=== PATIENT | male | born 1955 | race Caucasian/White ===

== ENCOUNTER 2024-04-13 08:05 | Day surgery (SDC) | payer OTHER ==
[2024-04-05 10:52] VITALS: BP 130/81
[~2024-04-13] VITALS: Ht 177.8 cm; Wt 120.5 kg
[~2024-04-13 08:05] MED LIST: ADVIL200 MG; COMBIVENT RESPIM4 GM INH; DULOXETINE HCL30 MG PO; GLUCOTROL XL5 MG PO; IBLOOD GLUCOSE TEST STRIP 1 EA TEST VI PRN; LACTATED RINGER'S 1,000 ML IV SCH; LANTUS SOL100 UNIT/1 SUB-Q; LEVOTHYROXINE175 MC1 PO; LIDOCAINE HCL 1% 5 ML SDV INJ ONE; METFORMIN HCL500 M3; MIDAZOLAM HCL 5 MG/5 ML VIAL IV PRN; OMEPRAZOLE20 MG PO; SPIRIVA RESPIMAT4 G1 INH; VENTOLIN HFA18 GM; ZOCOR20 MG PO; fentaNYL citrate 100 MCG/2 ML VIAL IV PRN
[2024-04-13 08:17] VITALS: BP 139/95
[2024-04-13] MEDS ORDERED: TYLENOL325 M1 PO (08:22)
[2024-04-13] MEDS ORDERED: propofoL 200 MG/20 ML VIAL ONE (08:49)
--- NOTE | 2024-04-13 09:29 | NUR ---
0915 PT IS COLD, PROVIDED WARM BLANKETS AND HOSE WARMER. PT UPDATED ON WAIT TIME. PT SEEMS AGREEABLE AND UNDERSTANDS AT THIS TIME
[2024-04-13] MEDS ORDERED: LACTATED RINGER'S 1,000 ML IV ONE (10:29)
--- NOTE | 2024-04-13 11:29 | NUR ---
04/13/24 Arabella9 Libra Rincon 1122-PATIENT ARRIVED TO PACU ON 6L MASK RR EVEN. PATIENT NONAROUSABLE ORAL AIRWAY IN PLACE. SR. IVF INFUSING. PATIENT LAYING LEFT LATERAL ABDOMEN ROUND AND SOFT. GLUCOSE 236
[2024-04-13 12:28] VITALS: BP 116/83
--- NOTE | 2024-04-14 08:46 | OR ---
[facility] [address] [place], [place] [address] Signed DATE OF OPERATION: 04/13/2024 SURGEON: Aime Lambert MD PREOPERATIVE DIAGNOSES: 1. Positive fecal immunochemical test. 2. Initial colonoscopy. POSTOPERATIVE DIAGNOSES: 1. Long redundant colon. 2. Minimal internal hemorrhoids. 3. 4 mm polyp at 6 cm in the rectum. 4. 5 mm polyp at 80 cm in left colon. 5. An 8 mm polyp at 95 cm in left colon (snare). 6. 4 mm polyp at 110 cm in transverse colon. 7. 8 mm polyps x4 and 4 mm polyp x1 in the proximal right colon (snare polypectomy x4, hot biopsy x1 and application of clip x2). 8. A 15 mm polyp at the end of ileocecal valve (snare). PROCEDURE: Colonoscopy with snare polypectomy, hot biopsy and application of clip x2. ESTIMATED BLOOD LOSS: None. INDICATIONS: Sonny is a 69-year-old obese diabetic gentleman with significant pulmonary dysfunction. He finally gave a FIT test and it came back positive. He said the stool was brown. He has never had a previous colonoscopy. There is no family history of colon cancer or polyps. He said he uses MiraLAX to keep his bowels regular on a daily basis. He told me in the office he can walk about 50-60 feet before he develops dyspnea on exertion and has to stop. Consequently, he clearly needed monitored anesthesia care with propofol infusion today. In the office, I gave him our brochure on colonoscopy. 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 He knows there is risk including, but not limited to gas bloating, crampy abdominal pain, bleeding, perforation requiring surgery, and missed diagnosis. We also reviewed the written instructions for the bowel prep line by line. He said he is very familiar with the MiraLAX of course as well as Dulcolax. We also gone through his medications very carefully. We had him hold the metformin and glipizide in the morning to after the test. He gave himself last night. He understands an adult person has to take him home afterwards. Electronically Signed By: AIME LAMBERT MD 04/14/24 0846 PATIENT NAME: SONNY GUO OPERATIVE REPORT DATE OF : 59 REPORT #: [id number] PHYSICIAN: AIME LAMBERT MD PCP: NO PRIMARY CARE PHYSICIAN REPORT IS CONFIDENTIAL AND NOT TO BE RELEASED WITHOUT AUTHORIZATION [facility] [address] [place] [id number] Signed He said that would most likely be his sister. He had expressed understanding and wished to proceed. PROCEDURE IN DETAIL: Sonny was taken into endoscopy suite and placed in the left lateral decubitus position. He was given monitored anesthesia care, propofol infusion per our nurse stage driver. A digital rectal exam was performed. He had good sphincter tone. Not much in way of external hemorrhoids. No masses. I really could not appreciate his prostate gland. The adult colonoscope was introduced and advanced under direct visualization of camera. It took a while to get around up into the cecum itself. Overall, his prep was not bad. He had some areas of liquid brown stool, I could not quite suction out completely. I think in the future he is going to need a double bowel prep to involve an entire gallon of polyethylene glycol. We took the above polyps out with the help of the snare and/or a hot biopsy forceps. He had a fairly significant polyp there at the one end of the ileocecal valve. He also had a cluster of multiple polyps in the proximal transverse colon. We did put a double clip in that area on one of the polypectomy sites. It was a bit broad. We put a third clip on another one of those biopsy sites as well. We did not specifically see any diverticulosis. Once in the rectum, the scope was retroflexed. He does have minimal to moderate internal hemorrhoid columns as well. After this, the gas was suctioned out, colonoscope removed. Sonny tolerated the procedure quite well. RECOMMENDATIONS: I will see Sonny back in my office in the next 7-14 days to review his results. He is going to need to heal up these polypectomy site and we need to take him back for a colonoscopy here in the months ahead on a double bowel prep. He will always need monitored anesthesia care. Aime Lambert MD ALB/MODL /[id number] cc: [place], [place] Aime Lambert MD Electronically Signed By: AIME LAMBERT MD 04/14/24 0846 PATIENT NAME: SONNY GUO OPERATIVE REPORT DATE OF : 59 REPORT #: [id number] PHYSICIAN: AIME LAMBERT MD PCP: NO PRIMARY CARE PHYSICIAN REPORT IS CONFIDENTIAL AND NOT TO BE RELEASED WITHOUT AUTHORIZATION [facility] [address] [place] [place], [place] [address] Signed Copies: AIME LAMBERT MD ~ Electronically Signed By: AIME LAMBERT MD 04/14/24 0846 PATIENT NAME: SONNY GUO OPERATIVE REPORT DATE OF : 59 REPORT #: [id number] PHYSICIAN: AIME LAMBERT MD PCP: NO PRIMARY CARE PHYSICIAN REPORT IS CONFIDENTIAL AND NOT TO BE RELEASED WITHOUT AUTHORIZATION
--- NOTE | 2024-04-18 17:11 | PATH ---
[facility] [address] [facility] [place], [place] [address] Signed SPECIMEN(S): A RECTAL POLYP, 6 CM SPECIMEN(S): B DESCENDING POLYP, 80 CM SPECIMEN(S): C COLON POLYP, 95 CM SPECIMEN(S): D COLON POLYP, 110 CM SPECIMEN(S): E PROXIMAL TRANSVERSE POLYP, 130 CM SPECIMEN(S): F CECUM, ILEOCECAL VALVE POLYP SPECIMEN SOURCE: A. RECTAL POLYP, 6 CM B. DESCENDING POLYP, 80 CM C. COLON POLYP, 95 CM D. COLON POLYP, 110 CM E. PROXIMAL TRANSVERSE POLYP, 130 CM F. CECUM, ILEOCECAL VALVE POLYP CLINICAL HISTORY: Screening. Internal hemorrhoids, long redundant colon. FINAL PATHOLOGIC DIAGNOSIS: A. Rectum, 6 mm, polypectomy: - Hyperplastic polyp B. Colon, descending, 80 cm, polypectomy: - Tubular adenoma C. Colon, 95 cm, polypectomy: - Tubular adenoma D. Colon, 110 cm, polypectomy: - Tubular adenoma E. Colon, proximal transverse, 130 cm, polypectomy: - Tubular adenoma F. Colon, cecum/ileocecal valve, polypectomy: - Tubular adenoma BRP MICROSCOPIC EXAMINATION: Histologic sections of all submitted blocks are examined by light microscopy. These findings, together with the gross examination, support the pathologic diagnosis. GROSS DESCRIPTION: A. The specimen, labeled and designated "Papo, rectal polyp, 6 cm," is received in formalin and consists of one tran soft tissue fragment, 0.3 cm. PATIENT NAME: NIELS GUO PATHOLOGY DATE OF : 59 REPORT #: [id number] PHYSICIAN: CLAIRE DE PCP: NO PRIMARY CARE PHYSICIAN REPORT IS CONFIDENTIAL AND NOT TO BE RELEASED WITHOUT AUTHORIZATION [facility] [address] [place], [place] [address] Signed Entirely submitted in (A1). B. The specimen, labeled and designated "Greeno, descending polyp, 80 cm," is received in formalin and consists of one tran soft tissue fragment, 0.4 cm. Entirely submitted in (B1). C. The specimen, labeled and designated "Greeno, colon polyp, 95 cm," is received in formalin and consists of four tran soft tissue fragments, ranging from 0.1-1.3 cm. Entirely submitted in (C1). D. The specimen, labeled and designated "Greeno, colon polyp, 110 cm," is received in formalin and consists of one tran soft tissue fragment, 0.3 cm. Entirely submitted in (D1). E. The specimen, labeled and designated "Greeno, proximal transverse polyp, 130 cm," is received in formalin and consists of multiple fragments of tran soft tissue (2.3 x 1.5 x 0.4 cm in aggregate). The specimen is submitted entirely in cassette (E1). F. The specimen, labeled and designated "Greeno, cecum-ileocecal valve polyp," is received in formalin and consists of multiple fragments of green-brown soft tissue (2.7 x 2.0 x 0.4 cm in aggregate). The specimen is submitted entirely in cassette (F1). VB (under the direct supervision of a pathologist) The Gross Description was prepared using a voice recognition system. The report was reviewed for accuracy; however, sound-alike word errors, addition and/or deletions may occur. If there is any question about this report, please contact Client Services. ADDITIONAL NOTES: Immunohistochemical and/or in situ hybridization studies if performed in this case included appropriate positive controls that reacted as expected. This test was developed and its performance characteristics determined by [facility]. It has not been cleared or approved by the U.S. Food and Drug Administration. The FDA has determined that such clearance or approval is not necessary. This test is used for clinical purposes. It should not be regarded as investigational or for research. [facility] is certified under the Clinical Laboratory Improvement Amendments of 1988 (CLIA) as qualified to perform high complexity clinical laboratory testing. PERFORMING LABORATORY: Technical component was performed by [facility], [address] [place] [id number] (CLIA# [id number]). Professional interpretation was performed by [facility] PATIENT NAME: NIELS GUO PATHOLOGY DATE OF : 59 REPORT #: [id number] PHYSICIAN: CLAIRE DE PCP: NO PRIMARY CARE PHYSICIAN REPORT IS CONFIDENTIAL AND NOT TO BE RELEASED WITHOUT AUTHORIZATION [facility] [address] [place], [place] [address] [id number] Diagnostician: Deng Oliver MD Pathologist Electronically Signed 04/18/2024 Copies: ~ PATIENT NAME: NIELS GUO PATHOLOGY DATE OF : 59 REPORT #: [id number] PHYSICIAN: CLAIRE PATHOLOGY PCP: NO PRIMARY CARE PHYSICIAN REPORT IS CONFIDENTIAL AND NOT TO BE RELEASED WITHOUT AUTHORIZATION
== END 2024-04-13 12:10 | disposition home or self-care (01) ==
LOC: DS 08:05
PROVIDERS: ATTEND Colon & Rectal Surgery
PROC: 0DBE8ZX Excision of Large Intestine, Via Natural or Artificial Opening Endoscopic, Diagnostic (ICD-10-PCS; principal; 2024-04-13 09:45)
DX: Z12.11 Encounter for screening for malignant neoplasm of colon (principal); D12.4 Benign neoplasm of descending colon; D12.3 Benign neoplasm of transverse colon; D12.0 Benign neoplasm of cecum; D12.2 Benign neoplasm of ascending colon; K62.1 Rectal polyp; Q43.8 Other specified congenital malformations of intestine; K64.8 Other hemorrhoids; K21.9 Gastro-esophageal reflux disease without esophagitis; J44.89 Other specified chronic obstructive pulmonary disease; E11.9 Type 2 diabetes mellitus without complications; E78.5 Hyperlipidemia, unspecified; E03.9 Hypothyroidism, unspecified; Z79.4 Long term (current) use of insulin; Z79.890 Hormone replacement therapy; Z79.899 Other long term (current) drug therapy
CPT/HCPCS: 00811; 88305; J2704; J7121

== ENCOUNTER 2025-01-04 05:50 | Day surgery (SDC) | payer OTHER ==
[2024-10-31 09:25] VITALS: BP 97/79
[2025-01-02 09:11] VITALS: BP 97/79
[~2025-01-04] VITALS: Ht 177.8 cm; Wt 110.9 kg
[~2025-01-04 05:50] MED LIST changes: +GLIPIZIDE ER5 MG PO; -IBLOOD GLUCOSE TEST STRIP 1 EA TEST VI PRN; -LIDOCAINE HCL 1% 5 ML SDV INJ ONE; -MIDAZOLAM HCL 5 MG/5 ML VIAL IV PRN; +OZEMPIC2 MG/0.75 SQ; +TYLENOL325 M1 PO; -fentaNYL citrate 100 MCG/2 ML VIAL IV PRN
[2025-01-04 06:04] VITALS: BP 147/93
[2025-01-04] MEDS ORDERED: LIDOCAINE HCL 1% 5 ML SDV INJ ONE (07:00)
[2025-01-04] MEDS ORDERED: IBLOOD GLUCOSE TEST STRIP 1 EA TEST VI PRN (07:00)
[2025-01-04] MEDS ORDERED: propofoL 200 MG/20 ML VIAL ONE (07:21)
[2025-01-04] MEDS ORDERED: LIDOCAINE HCL 2% 5 ML SDV ONE (07:21)
--- NOTE | 2025-01-04 07:26 | NUR ---
VISITED DURING SPIRITUAL CARE ROUNDS. PT SUPPORTED BY SISTER IN ROOM. BOTH IN OVERALL GOOD SPIRITS; NO IMMEDIATE NEEDS. DIE MECHANIC PROVIDED SUPPORTIVE PRESENCE, HOSPITALITY, PRAYER. PT AND SISTER EXPRESSED GRATITUDE.
--- NOTE | 2025-01-04 07:29 | NUR ---
GAVE PAGER 11 TO SISTER THALIA.
[2025-01-04] MEDS ORDERED: GLUCAGON,HUMAN RECOMBINANT 1 MG/ML VIAL ONE (07:49)
[2025-01-04] MEDS ORDERED: WATER STERILE 20 ML VIAL ONE (07:51)
[2025-01-04] MEDS ORDERED: fentaNYL citrate 100 MCG/2 ML VIAL ONE (08:07)
--- NOTE | 2025-01-04 08:27 | NUR ---
01/04/25 0827 Libra Rincon 0801-PATIENT ARRIVED TO PACU ON 6L MASK RR EVEN NOANROUSABLE. PATIENT LAYING LEFT LATERAL ABDOMEN SOFT IVF INFUSING. SR HR 80'S.
[2025-01-04 08:59] VITALS: BP 118/96
--- NOTE | 2025-01-04 10:01 | OR ---
[facility] [address] [place], [place] [address] Signed DATE OF OPERATION: 01/04/2025 SURGEON: Aime Lambert MD PREOPERATIVE DIAGNOSES: 1. Personal history of colonic polyps in March 2024. 2. Long redundant colon. 3. Internal hemorrhoids. POSTOPERATIVE DIAGNOSES: 1. Long redundant colon. 2. Minimal sigmoid diverticulosis. 3. Moderate internal and external hemorrhoids. 4. An 8 mm polyp at 85 cm in left colon (snare). 5. A 10 to 12 mm polyp at 65 cm in left colon remaining in situ. 6. Very poor bowel prep. PROCEDURE: Colonoscopy with hot biopsy. ESTIMATED BLOOD LOSS: None. INDICATIONS: Sravan is a 69-year-old obese diabetic gentleman, who had saw me for his initial colonoscopy last year. He had a positive FIT test. He also uses a wheeled walker. We helped him in March of last year and we found that he has a long redundant colon along with internal hemorrhoids. He had 10 polyps removed, 9 of which were adenomatous. The other was hyperplastic. His prep was not the best. We asked him to come back on a short interval with a double bowel prep, which would include eight Dulcolax tablets and an entire gallon of polyethylene glycol throughout the day. He understands there is risk including, but not limited to gas bloating, crampy abdominal pain, bleeding, perforation requiring surgery, and missed diagnosis. We had went through the bowel prep instructions once again and I marked that appropriately for double bowel prep. We went through that actually quite a bit of detail. Also because of his size and his COPD, we asked for monitored anesthesia care once again. He understands an adult person has to take him home afterwards. It sounds like his sister is here today. He had expressed understanding and wished to proceed. DESCRIPTION OF PROCEDURE: Electronically Signed By: AIME LAMBERT MD 01/04/25 1001 PATIENT NAME: SONNY GUO OPERATIVE REPORT DATE OF : 59 REPORT #: [id number] PHYSICIAN: IAME LAMBERT MD PCP: NO PRIMARY CARE PHYSICIAN REPORT IS CONFIDENTIAL AND NOT TO BE RELEASED WITHOUT AUTHORIZATION [facility] [address] [place], [place] [address] Signed Sravan was taken into our endoscopy suite and placed in the left lateral decubitus position. He was given monitored anesthesia care propofol infusion per our nurse pile trimmer. A digital rectal exam was performed. On this occasion, he had bilateral moderate-sized external hemorrhoids. He had good sphincter tone. No masses. His prostate was indurated and enlarged. The adult colonoscope was introduced and we immediately started to encounter liquid particulate stool matter. It was far too much to suction through the scope. We worked our way up through the colon and he could not maintain any air. He air and all the liquid particulate stool matter. We added some fentanyl which helped along with some glucagon. We made our way up into the transverse colon and never could get any further. The prep was so poor that we were having trouble seeing. We just simply had the stop. The scope was slowly withdrawn. We did take a polyp about although listed as 85 cm. When we came back, it was closer to 70 cm. We used a hot biopsy forceps to biopsy and destroyed that completely. We saw no other polyp, probably 10 or 12 mm at about 65 cm in the left colon. We spent well over 5 minutes trying to capture that polyp with the spasm of the colon and we never were able to get that polyp. We did see just a few diverticula in the sigmoid colon. Once in the rectum, we retroflexed the scope and again he has moderate internal hemorrhoid columns. After this, the gas was suctioned out, colonoscope removed. Sonny tolerated the procedure well overall. RECOMMENDATIONS: Snony should come back on another short interval anywhere from a few months out to 18 months. He definitely needs a full bottle of magnesium citrate followed by a full gallon of polyethylene glycol. He will always need monitored anesthesia care. He needs to take this very seriously as he has had at least 12 polyps at this point. There was another polyp in the left colon at 65 cm. It needs to be removed. Aime Lambert MD ALB/MODL /[id number] cc: Aime Lambert MD [place], [place] Electronically Signed By: AIME LAMBERT MD 01/04/25 1001 PATIENT NAME: SONNY GUO OPERATIVE REPORT DATE OF : 59 REPORT #: [id number] PHYSICIAN: AIME LAMBERT MD PCP: NO PRIMARY CARE PHYSICIAN REPORT IS CONFIDENTIAL AND NOT TO BE RELEASED WITHOUT AUTHORIZATION [address] [address] Signed Copies: AIME LAMBERT MD ~ Electronically Signed By: AIME LAMBERT MD 01/04/25 1001 PATIENT NAME: SONNY GUO OPERATIVE REPORT DATE OF : 59 REPORT #: [id number] PHYSICIAN: AIME LAMBERT MD PCP: NO PRIMARY CARE PHYSICIAN REPORT IS CONFIDENTIAL AND NOT TO BE RELEASED WITHOUT AUTHORIZATION
--- NOTE | 2025-01-08 10:03 | PATH ---
[facility] [address] [facility] [place], [place] [address] Signed SPECIMEN(S): A COLON POLYP AT 85 CM SPECIMEN SOURCE: A. COLON POLYP AT 85 CM v CLINICAL HISTORY: 04/10 tubular adenoma, external hemorrhoids, internal hemorrhoids, diverticulosis and polyp FINAL PATHOLOGIC DIAGNOSIS: Colon, 85 cm, polypectomy: - Tubular adenoma BRP MICROSCOPIC EXAMINATION: Histologic sections of all submitted blocks are examined by light microscopy. These findings, together with the gross examination, support the pathologic diagnosis. GROSS DESCRIPTION: The specimen, labeled and designated "Greeno, colon polyp at 85 cm," is received in formalin and consists of one tran soft tissue fragment, 0.3 cm. Entirely submitted in (A1). VB (under the direct supervision of a pathologist) The Gross Description was prepared using a voice recognition system. The report was reviewed for accuracy; however, sound-alike word errors, addition and/or deletions may occur. If there is any question about this report, please contact Client Services. ADDITIONAL NOTES: Immunohistochemical and/or in situ hybridization studies if performed in this case included appropriate positive controls that reacted as expected. This test was developed and its performance characteristics determined by [facility]. It has not been cleared or approved by the U.S. Food and Drug Administration. The FDA has determined that such clearance or approval is not necessary. This test is used for clinical purposes. It should not be regarded as investigational or for research. [facility] is certified under the Clinical Laboratory Improvement Amendments of 1988 (CLIA) as qualified to perform high complexity clinical PATIENT NAME: NIELS GUO PATHOLOGY DATE OF : 59 REPORT #: [id number] PHYSICIAN: CLAIRE DE PCP: NO PRIMARY CARE PHYSICIAN REPORT IS CONFIDENTIAL AND NOT TO BE RELEASED WITHOUT AUTHORIZATION [facility] [address] [place] [address] [place], [place] [address] Signed laboratory testing. PERFORMING LABORATORY: Technical component was performed by [facility], [address] [place] [address] (CLIA# [id number]). Professional interpretation was performed by [facility], [address] [place] [address] (CLIA#: [id number]). Diagnostician: Deng Oliver MD Pathologist Electronically Signed 01/08/2025 Copies: ~ PATIENT NAME: NIELS GUO PATHOLOGY DATE OF : 59 REPORT #: [id number] PHYSICIAN: CLAIRE DE PCP: NO PRIMARY CARE PHYSICIAN REPORT IS CONFIDENTIAL AND NOT TO BE RELEASED WITHOUT AUTHORIZATION
== END 2025-01-04 09:05 | disposition home or self-care (01) ==
LOC: OPS 05:50 → DS 05:50 → OPS 07:30
PROVIDERS: ATTEND Colon & Rectal Surgery
PROC: 0DBG8ZZ Excision of Left Large Intestine, Via Natural or Artificial Opening Endoscopic (ICD-10-PCS; principal; 2025-01-04 07:30)
DX: D12.6 Benign neoplasm of colon, unspecified (principal); K63.89 Other specified diseases of intestine; K57.30 Diverticulosis of large intestine without perforation or abscess without bleeding; K64.4 Residual hemorrhoidal skin tags; K64.8 Other hemorrhoids; E66.9 Obesity, unspecified; E11.9 Type 2 diabetes mellitus without complications; K21.9 Gastro-esophageal reflux disease without esophagitis; J44.9 Chronic obstructive pulmonary disease, unspecified; E78.5 Hyperlipidemia, unspecified; E03.9 Hypothyroidism, unspecified; Z68.37 Body mass index [BMI] 37.0-37.9, adult; Z79.84 Long term (current) use of oral hypoglycemic drugs; Z79.899 Other long term (current) drug therapy
CPT/HCPCS: 00811; 88305; J1610; J2003; J2704; J3010; J7121

== ENCOUNTER 2025-08-23 05:55 | Day surgery (SDC) | payer OTHER ==
[~2025-08-23] VITALS: Ht 177.8 cm; Wt 123.0 kg
[~2025-08-23 05:55] MED LIST changes: -METFORMIN HCL500 M3; +METFORMIN HCL500 M3 PO; -VENTOLIN HFA18 GM; +VENTOLIN HFA18 GM INH
[2025-08-23 06:14] VITALS: BP 128/76
[2025-08-23] MEDS ORDERED: FLOMAX0.4 MG PO (06:35)
[2025-08-23] MEDS ORDERED: LIDOCAINE HCL 1% 5 ML SDV INJ ONE (07:00)
[2025-08-23] MEDS ORDERED: IBLOOD GLUCOSE TEST STRIP 1 EA TEST VI PRN (07:00)
[2025-08-23] MEDS ORDERED: LIDOCAINE HCL 2% 5 ML SDV ONE (07:42)
[2025-08-23] MEDS ORDERED: SODIUM CHLORIDE 0.9% 20 ML IV ONE (08:17)
[2025-08-23] MEDS ORDERED: PHENYLEPHRINE HCL IN 0.9% NACL 1 MG/10 ML SYR ONE (09:06)
[2025-08-23 09:47] VITALS: BP 109/75
--- NOTE | 2025-08-23 10:17 | NUR ---
08/23/25 1017 Nadege Fontenot 0930 PT ARRIVED IN PACU SLEEPY. ABD SOFT AND PASSING FLATUS. 0940 PT AWAKE AND ASKING FOR WATER. 0945 SITTING UP IN BED SIPPING ON WATER. 0950 BLOOD SUGAR 61. DRINKING ORANGE JUICE. 1000 DC INSTRUCTIONS GIVEN. BLOOD SUGAR 73. PT GETTING DRESSED. 1005 PT WITH NO C/O'S. BLOOD SUGAR 75 ON PT'S GIBRAN 3 PUMP. LEFT VIA W/C TO CAR. SISTER HAD FOOD IN CAR FOR PT. ANESTHESIA AWARE OF LOW BLOOD SUGAR WITH NO NEW ORDERS.
--- NOTE | 2025-08-27 10:02 | PATH ---
[facility] [address] [facility] [place], [place] [address] Signed SPECIMEN(S): A MID ASCENDING POLYP SPECIMEN(S): B PROXIMAL ASCENDING POLYP SPECIMEN(S): C COLON POLYP, 65 CM SPECIMEN SOURCE: A. MID ASCENDING POLYP B. PROXIMAL ASCENDING POLYP C. COLON POLYP, 65 CM CLINICAL HISTORY: History of polyps FINAL PATHOLOGIC DIAGNOSIS: A. Mid ascending polyp: - Tubular adenoma (one fragment). B. Proximal ascending polyp: - Tubulovillous adenoma (multiple fragments). C. Colon polyp, 65 cm: - Tubular adenoma (two fragments). JVR MICROSCOPIC EXAMINATION: Histologic sections of all submitted blocks are examined by light microscopy. These findings, together with the gross examination, support the pathologic diagnosis. GROSS DESCRIPTION: A. The specimen, labeled and designated "Greeno, mid ascending polyp," is received in formalin and consists of one tran soft tissue fragment, 0.3 cm. Entirely submitted in (A1). B. The specimen, labeled and designated "Greeno, proximal ascending polyp," is received in formalin and consists of eight tran soft tissue fragments, ranging from 0.2-0.6 cm. Entirely submitted in (B1). C. The specimen, labeled and designated "Greeno, colon polyp, 65 cm," is received in formalin and consists of two tran soft tissue fragments, ranging from 0.4-0.5 cm. Entirely submitted in (C1). VB (under the direct supervision of a pathologist) The Gross Description was prepared using a voice recognition system. The report was reviewed for accuracy; however, sound-alike word errors, addition and/or deletions may occur. If there is any PATIENT NAME: NIELS GUO PATHOLOGY DATE OF : 59 REPORT #: [id number] PHYSICIAN: CLAIRE DE PCP: SNEHA NOLAN MD REPORT IS CONFIDENTIAL AND NOT TO BE RELEASED WITHOUT AUTHORIZATION [facility] [address] [place], [place] [address] Signed question about this report, please contact Client Services. ADDITIONAL NOTES: Immunohistochemical and/or in situ hybridization studies if performed in this case included appropriate positive controls that reacted as expected. This test was developed and its performance characteristics determined by [facility]. It has not been cleared or approved by the U.S. Food and Drug Administration. The FDA has determined that such clearance or approval is not necessary. This test is used for clinical purposes. It should not be regarded as investigational or for research. [facility] is certified under the Clinical Laboratory Improvement Amendments of 1988 (CLIA) as qualified to perform high complexity clinical laboratory testing. PERFORMING LABORATORY: Technical component was performed by [facility], [address] [place] [id number] (CLIA# [id number]). Professional interpretation was performed by [facility] [facility] - [address] [place] [address] (CLIA#: [id number]). Diagnostician: Irwin Ann MD Pathologist Electronically Signed 08/27/2025 Copies: ~ PATIENT NAME: NIELS GUO PATHOLOGY DATE OF : 59 REPORT #: [id number] PHYSICIAN: CLAIER PATHOLOGY PCP: SNEHA NOLAN MD REPORT IS CONFIDENTIAL AND NOT TO BE RELEASED WITHOUT AUTHORIZATION
== END 2025-08-23 10:05 | disposition home or self-care (01) ==
LOC: OPS 05:55 → DS 05:55 → OPS 07:30
PROVIDERS: ATTEND Surgery
PROC: 0DBF8ZZ Excision of Right Large Intestine, Via Natural or Artificial Opening Endoscopic (ICD-10-PCS; 2025-08-23)
PROC: 0DBM8ZZ Excision of Descending Colon, Via Natural or Artificial Opening Endoscopic (ICD-10-PCS; principal; 2025-08-23 07:30)
DX: D12.2 Benign neoplasm of ascending colon (principal); D12.4 Benign neoplasm of descending colon; J44.9 Chronic obstructive pulmonary disease, unspecified; K21.9 Gastro-esophageal reflux disease without esophagitis; E11.9 Type 2 diabetes mellitus without complications; E78.5 Hyperlipidemia, unspecified; E03.9 Hypothyroidism, unspecified; K76.0 Fatty (change of) liver, not elsewhere classified; E66.9 Obesity, unspecified; Z68.38 Body mass index [BMI] 38.0-38.9, adult; Z86.0101 Personal history of adenomatous and serrated colon polyps; Z87.891 Personal history of nicotine dependence; Z79.4 Long term (current) use of insulin; Z79.85 Long-term (current) use of injectable non-insulin antidiabetic drugs; Z79.84 Long term (current) use of oral hypoglycemic drugs; Z79.890 Hormone replacement therapy; Z79.899 Other long term (current) drug therapy; Z88.5 Allergy status to narcotic agent; Z90.49 Acquired absence of other specified parts of digestive tract
CPT/HCPCS: 00811; 88305; J0165; J2003; J2704; J7121